=== PATIENT | male | born 1945 | race Caucasian/White ===

== ENCOUNTER 2020-11-21 05:26 | Day surgery (SDC) | payer MEDICARE, OTHER, SELFPAY ==
[2020-10-18 12:41] VITALS: BMI 28.2
[2020-11-21] VITALS (10 sets, daily range): BP systolic 117–142; BP diastolic 67–78; PULSE 56–68; RESP 16; TEMP 35.8–36.6; O2SAT 94–100; BMI 26.5
--- NOTE | 2020-11-21 06:06 | HP.PCM_ITS ---
History and Physical Date of Admission: 11/21/20 [facility] <Noa Ott - Last Filed: 10/18/20 12:47> Medical History (Updated 10/18/20 @ 13:[address] Harish Groves MD) Arthritis Back problem Cancer of bone Hypertension Presbycusis of both ears Prostate cancer Umbilical hernia Surgical History (Updated 10/18/20 @ 12:37 by Noa Ott) S/P appendectomy S/P prostatectomy S/P tonsillectomy Family History (Updated 10/18/20 @ 12:39 by Noa Ott) Daughter Breast cancer Mother Heart disease Myocardial infarction Father Prostate cancer Social History (Updated 10/18/20 @ 12:40 by Noa Ott) Smoking Status: Former smoker Smokeless tobacco user: chewing tobacco alcohol intake: current alcohol intake frequency: holidays/special occasions only caffeine: Yes what type of physical activity do you participate in: walking and aerobics frequency: 3-4 times per week HPI <Noa Ott - Last Filed: 10/18/20 12:47> HPI HPI: JAMILA ALVARADO, is a 75 M who presents to the office today for <Dr. Harish Groves MD - Last Filed: 10/18/20 13:47> HPI HPI: 75-year-old gentleman. He is referred to me today by Dr. Candido Littlejohn and a written copy of my surgical consult and recommendations will be returned to him. The patient has a ventral incisional hernia located at the superior aspect of the umbilicus. This is related to her previous radical prostatectomy incision. 8 years ago the patient was diagnosed as having prostate cancer. He underwent a radical prostatectomy. 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 He has been treated successfully without advancement of disease. He has remained incredibly stable. His PSA apparently is essentially nothing. His testosterone level is also low to nothing. He enjoys a very good quality of life. On a secondary note it has been recommended to him that he consider a colonoscopy. He states that 2 other consultants regarding this procedure and have advised that he not proceed. He has never had a colonoscopy or colon screening procedure. Fortunately he currently denies any bright red blood per rectum or melena. He denies any family history of colon cancer HPI <Noa Ott - Last Filed: 10/18/20 12:47> HPI HPI: JAMILA ALVARADO, is a 75 M who presents to the office today for ROS <Noa Ott - Last Filed: 10/18/20 12:47> General General: No weight change, appetite, fatigue, colon cancer or breast cancer HEENT HEENT: No difficulty swallowing, eye injury, eye surgery, swollen glands or hoarseness Endo Endocrine: No thyroid disease, diabetes mellitus, thyroid cancer, Hair loss, heat intolerance or cold intolerance Skin Skin: No rash or changing moles Musc Musculoskeletal: Yes back problems and arthritis; No rheumatoid arthritis, gout or joint pain Cardio Cardiovascular: Yes high blood pressure; No murmur, pacemaker, heart disease, atrial fibrillation, heart attack, heart stent, palpitations, shortness of breat with exertion or chest pain Psych Psychiatric: No depression, anxiety or hearing voices Resp Respiratory: No shortness of breath, No sleep apnea, No cough, No COPD, No asthma, No emphysema and No wheezing Gastro Gastrointestinal: No abdominal pain, No nausea or vomiting, No diarrhea, No constipation, No blood in stool, No acid reflux, No hemorrhoids, No ulcers, No gallbladder problem and No black,tarry stools Michael Hematologic: No blood thinners, No blood disorders, No bleeding, No anemia and No blood clots Exam <Noa Ott - Last Filed: 10/18/20 12:47> Cardio Heart Sounds: no murmurs <Dr. Harish Groves MD - Last Filed: 10/18/20 13:47> Const General: cooperative, healthy appearing and comfortable Eyes General: appearance normal, both eyes and all related structures Resp Effort & Inspection: normal respiratory effort Cardio Rate: regular rate Rhythm: regular rhythm GI Inspection: normal to inspection Other: Small incision in the inferior portion of the umbilicus. Incarcerated fibrofatty tissue at the superior aspect. No erythema. No hepatosplenomegaly, normal bowel sounds, nontender Musc Cervical Spine: normal cervical lordosis Extrem General: no calf tenderness bilaterally Psych Thought Content: normal <Dr. Harish Groves MD - Last Filed: 10/18/20 13:47> Procedure Criteria Procedure Criteria: Yes Elective The surgeon/proceduralist and patient have discussed in detail the risk of exposure to and/or potential harm posed by the COVID-19 virus with having a surgery/procedure at this time versus the risk of delaying the surgery/procedure. It is not possible to know either the risk of delaying the surgery or procedure or chance of getting an infection with perfect accuracy, but a joint decision was made between the patient and the surgeon/proceduralist to proceed at this time with the scheduled surgery/procedure as indicated on the consent form. <Dr. Harish Groves MD - Last Filed: 10/18/20 13:47> Assessment and Plan (1) Incarcerated ventral hernia: (2) Screening for intestinal cancer: Plan Details Additional Comments: The patient has evidence of an incarcerated ventral incisional hernia at the superior aspect of the umbilicus. On clinical exam this is consistent with fibrofatty tissue but it feels rather fixed and rubbery and firm. The patient otherwise and is enjoying a good quality of life. I do recommend and offer him a repair. This would likely be performed through a small keyhole incision based upon the more superior aspect of the umbilicus within likely placement of an Ventralex mesh. He is aware of the technique, benefit, risk, alternatives. The patient has never had a screening colonoscopy. Although he has metastatic prostate cancer to the bone he has had that for 8 years and is continuing to enjoy a very high quality of life. I also discussed with him a screening colonoscopy with possible biopsy or polypectomy as indicated. He is aware of the technique benefit risk complications alternatives. He has had an opportunity to ask and have questions answered. He is interested in proceeding with this. We will schedule and assist. I very much appreciate the kind opportunity of assisting with his surgical care Copy: Dr. Candido Groves M.D., F.A.C.S. The patient presents for screening colonoscopy today. History and physical is been reviewed. No acute changes. We will proceed as noted. Harish Groves M.D., F.A.C.S.
[2020-11-21] MEDS: Lactated Ringers 1,000 ML 100 ML IV (06:13)
[2020-11-21] MEDS: 0.9% Saline Lock 10 ML Syringe IV (06:30)
[2020-11-21] MEDS: Midazolam 5 MG/ML Syringe (06:30)
--- NOTE | 2020-11-21 06:30 | COLBX_PTH ---
PATIENT: JAMILA ALVARADO LOC: [facility] U#:[id number] AGE/SX: 75/M ROOM: RE11/21/[address]: Dr. Harish Groves MD : 1945 BED: DIS: 11/21/2020 SPEC #: [id number] RECD: 11/21/20 09:02 STATUS: ADRIANA TORRESChavo #: [id number] AUSTYN: 11/21/20 06:[address]: Harish Groves DEPT: SURGICAL PATHOLOGY RECD BY: Von Lopez ENTERED: 11/21/20 09:57 SP TYPE: COLON BX OTHR DR: Dr. Candido Littlejohn MD Tissues: A - Ascending colon B - Descending colon Procedures: Surgery Specimen Level IV HEADER OPERATION: Colonoscopy (MOD) PRE-OP DIAGNOSIS: Screening for intestinal cancer TISSUE SUBMITTED: A ? Distal ascending colon polyp biopsy, B ? Descending colon polyp biopsy MICROSCOPIC DIAGNOSIS A. Distal ascending colon polyp, biopsy: Fragments of tubular adenoma. B. Descending colon polyp, biopsy: Tubular adenoma. SUJATA:meño 11/22/2020 MICROSCOPIC DESCRIPTION Slides are reviewed. GROSS DESCRIPTION A - Received in fixative is one container labeled with the patient's name and designated distal ascending colon polyp biopsy. The specimen consists of multiple variable sized pieces of wang-pink polyp that in aggregate measure 1.2 x 0.5 x 0.3 cm. The specimen is totally submitted in one cassette. B - Received in fixative is one container labeled with the patient's name and designated descending colon polyp biopsy. The specimen consists of a pink-red polyp measuring 1.2 x 0.7 x 0.8 cm. The apparent base is inked. The specimen is serially sectioned and submitted entirely in one cassette. / SUJATA:meño 11/21/20 TC:1 [facility]: [id number] x2
--- NOTE | 2020-11-24 15:09 | OP.CCLET_ITS ---
11/21/2020 Candido Littlejohn Re : Colonoscopy procedure for Phillip Hi Dear Annetta This procedure was performed on Saturday, November 21, 2020. My impressions and recommendations are as follows: Impressions : - Hemorrhoids found on perianal exam. - One 10 mm polyp in the distal ascending colon, removed with a hot snare. Resected and retrieved. - One 12 mm polyp in the distal descending colon, removed with a hot snare and removed using injection-lift and a hot snare. Resected and retrieved. Clip was placed. - Diverticulosis in the sigmoid colon. Recommendations : - Discharge patient to home. - Resume previous diet. - Continue present medications. - Repeat colonoscopy in 5 years for surveillance based on pathology results. - Telephone my office for pathology results in 1 week. My findings are described in the full procedure note, which is enclosed. If I can be of further assistance, please feel free to contact me at Doctor phone number(s): Work: . Sincerely, Harish Groves MD 11/21/2020 6:58:53 AM This report has been signed electronically.
--- NOTE | 2020-11-24 15:09 | OP.COLON_ITS ---
Patient Name: Phillip Hi Procedure Date: 11/21/2020 6:13 AM Date of : 1945 Age: 75 Procedure: Colonoscopy Indications: Screening for colorectal malignant neoplasm Providers: Harish Groves MD Medicines: Midazolam 3 mg IV, Meperidine 100 mg IV Patient Profile: Last Colonoscopy: none. The patient's first colonoscopy is today. Complications: No immediate complications. Procedure: Pre-Anesthesia Assessment: - Prior to the procedure, a History and Physical was performed, and patient medications and allergies were reviewed. The patient's tolerance of previous anesthesia was also reviewed. The risks and benefits of the procedure and the sedation options and risks were discussed with the patient. All questions were answered, and informed consent was obtained. Prior Anticoagulants: The patient has taken no previous anticoagulant or antiplatelet agents. ASA Grade Assessment: II - A patient with mild systemic disease. After reviewing the risks and benefits, the patient was deemed in satisfactory condition to undergo the procedure. After I obtained informed consent, the scope was passed under direct vision. Throughout the procedure, the patient's blood pressure, pulse, and oxygen saturations were monitored continuously. The Colonoscope was introduced through the anus and advanced to the cecum, identified by appendiceal orifice and ileocecal valve. The colonoscopy was performed without difficulty. The patient tolerated the procedure well. The quality of the bowel preparation was good. The ileocecal valve and the appendiceal orifice were photographed. Moderate Sedation: Moderate (conscious) sedation was personally administered by the endoscopist. The following parameters were monitored: oxygen saturation, heart rate, blood pressure, and response to care. Total physician intraservice time was 15 minutes. Scope In: 6:30:35 AM Scope Withdrawal Time 0 hours 17 minutes 36 seconds Scope Out: 6:50:55 AM Total Procedure Duration Time 0 hours 20 minutes 20 seconds Findings: Hemorrhoids were found on perianal exam. A 10 mm polyp was found in the distal ascending colon. The polyp was pedunculated. The polyp was removed with a hot snare. Resection and retrieval were complete. A 12 mm polyp was found in the distal descending colon. The polyp was semi-sessile. The polyp was removed with a hot snare. The polyp was removed with a saline injection-lift technique using a hot snare. Resection and retrieval were complete. To prevent bleeding post-intervention, one hemostatic clip was successfully placed. There was no bleeding at the end of the procedure. Multiple diverticula were found in the sigmoid colon. Impression: - Hemorrhoids found on perianal exam. - One 10 mm polyp in the distal ascending colon, removed with a hot snare. Resected and retrieved. - One 12 mm polyp in the distal descending colon, removed with a hot snare and removed using injection-lift and a hot snare. Resected and retrieved. Clip was placed. - Diverticulosis in the sigmoid colon. Recommendation: - Discharge patient to home. - Resume previous diet. - Continue present medications. - Repeat colonoscopy in 5 years for surveillance based on pathology results. - Telephone my office for pathology results in 1 week. Procedure Code(s): --- Professional --- 03889, Colonoscopy, flexible; with removal of tumor(s), polyp(s), or other lesion(s) by snare technique 68183, Colonoscopy, flexible; with directed submucosal injection(s), any substance 34586, 59, Moderate sedation services provided by the same physician or other qualified health home care attendant performing the diagnostic or therapeutic service that the sedation supports, requiring the presence of an independent trained observer to assist in the monitoring of the patient's level of consciousness and physiological status; initial 15 minutes of intraservice time, patient age 5 years or older Diagnosis Code(s): --- Professional --- Z12.11, Encounter for screening for malignant neoplasm of colon K64.9, Unspecified hemorrhoids D12.2, Benign neoplasm of ascending colon D12.4, Benign neoplasm of descending colon K57.30, Diverticulosis of large intestine without perforation or abscess without bleeding CPT copyright 2017 [employer]. All rights reserved. The codes documented in this report are preliminary and upon convertible power shovel operator review may be revised to meet current compliance requirements. Harish Groves MD 11/21/2020 6:58:53 AM This report has been signed electronically. Number of Addenda: 0 Note Initiated On: 11/21/2020 6:13 AM
== END 2020-11-21 08:00 ==
LOC: EN 05:36 → AC 05:38
PROVIDERS: PCP Family Medicine; Referring Provider Family Medicine; Visit Provider Surgery
PROC: 0DJD8ZZ Inspection of Lower Intestinal Tract, Via Natural or Artificial Opening Endoscopic (ICD-10-PCS; CPT 45378; principal; 2020-11-21 06:25)
DX: Z12.11 Encounter for screening for malignant neoplasm of colon (principal); D12.2 Benign neoplasm of ascending colon; D12.4 Benign neoplasm of descending colon; M19.90 Unspecified osteoarthritis, unspecified site; I10 Essential (primary) hypertension; H91.13 Presbycusis, bilateral; Z85.830 Personal history of malignant neoplasm of bone; Z85.46 Personal history of malignant neoplasm of prostate; Z87.891 Personal history of nicotine dependence; K43.6 Other and unspecified ventral hernia with obstruction, without gangrene; K57.30 Diverticulosis of large intestine without perforation or abscess without bleeding; K64.9 Unspecified hemorrhoids
CPT/HCPCS: 45381; 45385; 88305; 99152; 99153; J7120; A4216

== ENCOUNTER 2020-12-05 08:53 | Day surgery (SDC) | payer MEDICARE, OTHER, SELFPAY ==
[2020-10-18 12:41] VITALS: BMI 28.2
[2020-11-21 06:02] VITALS: BMI 26.5
--- NOTE | 2020-11-30 09:11 | EKG12_ITS ---
Test Reason : PREOP Blood Pressure : / mmHG Vent. Rate : 068 BPM Atrial Rate : 068 BPM P-R Int : 178 ms QRS Dur : 126 ms QT Int : 444 ms P-R-T Axes : 068 -55 022 degrees QTc Int : 472 ms Normal sinus rhythm with sinus arrhythmia Left axis deviation Right bundle branch block Abnormal ECG Confirmed by AVA DOVER, STEPH ([id number]), editor in chief VANIA ANGEL ([id number]) on 12/01/2020 8:09:34 AM Referred By: Harish Groves Confirmed By:STEPH ESCALANTE MD
[2020-11-30 09:37] LABS: Hematocrit 44.2 % (40-54); Hemoglobin 14.9 g/dL (13.0-16.5); Mean Corp Hgb Conc 33.7 g/dL (32-36); Mean Corpuscular Hgb 28.9 pg (27.0-32.0); Mean Corpuscular Volume 85.8 fL (80-94); Mean Platelet Vol. 10.3 fl (6.2-12.0); Platelet Count 144 K/mm3 (150-450); RBC Distribution Width SD 37.8 fl (35.1-43.9); Red Blood Count 5.15 M/mm3 (4.6-6.2); White Blood Count 4.9 K/mm3 (4.4-11.0)
[2020-11-30 10:03] LABS: Anion Gap 5 (5-15); BUN 18 mg/dL (7-18); BUN/Creat Ratio 22.3 RATIO (10-20); Chloride 106 mmol/L (98-107); Creatinine, Serum 0.81 mg/dL (0.70-1.30); EST Glomerular Filtration Rate 99 mL/min (>60); Est Glom Filt Rate - Afr Amer 119 mL/min (>60); Glucose 95 mg/dL (74-106); Potassium 4.5 mmol/L (3.5-5.1); Sodium Level 141 mmol/L (136-145)
[2020-12-05] VITALS (7 sets, daily range): BP systolic 136–157; BP diastolic 71–79; PULSE 61–80; RESP 16–18; TEMP 36.2–37; O2SAT 92–98; BMI 26.2
[2020-12-05] MEDS: Lactated Ringers 1,000 ML 100 ML IV (09:39)
--- NOTE | 2020-12-05 10:40 | PCM.HP.BLA ---
History and Physical Date of Admission: 12/05/20 Arthritis Back problem Cancer of bone Hypertension Presbycusis of both ears Prostate cancer Umbilical hernia Surgical History (Updated 10/18/20 @ 12:37 by Noa Ott) S/P appendectomy S/P prostatectomy S/P tonsillectomy Family History (Updated 10/18/20 @ 12:39 by Noa Ott) Daughter Breast cancer Mother Heart disease Myocardial infarction Father Prostate cancer Social History (Updated 10/18/20 @ 12:40 by Noa Ott) Smoking Status: Former smoker Smokeless tobacco user: chewing tobacco alcohol intake: current alcohol intake frequency: holidays/special occasions only caffeine: Yes what type of physical activity do you participate in: walking and aerobics frequency: 3-4 times per week HPI <Noa Ott - Last Filed: 10/18/20 12:47> HPI HPI: JAMILA ALVARADO, is a 75 M who presents to the office today for <Dr. Harish Groves MD - Last Filed: 10/18/20 13:47> HPI HPI: 75-year-old gentleman. He is referred to me today by Dr. Candido Littlejohn and a written copy of my surgical consult and recommendations will be returned to him. The patient has a ventral incisional hernia located at the superior aspect of the umbilicus. This is related to her previous radical prostatectomy incision. 8 years ago the patient was diagnosed as having prostate cancer. He underwent a radical prostatectomy. 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 He has been treated successfully without advancement of disease. He has remained incredibly stable. His PSA apparently is essentially nothing. His testosterone level is also low to nothing. He enjoys a very good quality of life. On a secondary note it has been recommended to him that he consider a colonoscopy. He states that 2 other consultants regarding this procedure and have advised that he not proceed. He has never had a colonoscopy or colon screening procedure. Fortunately he currently denies any bright red blood per rectum or melena. He denies any family history of colon cancer HPI <Noa Ott - Last Filed: 10/18/20 12:47> HPI HPI: JAMILA ALVARADO, is a 75 M who presents to the office today for ROS <Noa Ott - Last Filed: 10/18/20 12:47> General General: No weight change, appetite, fatigue, colon cancer or breast cancer HEENT HEENT: No difficulty swallowing, eye injury, eye surgery, swollen glands or hoarseness Endo Endocrine: No thyroid disease, diabetes mellitus, thyroid cancer, Hair loss, heat intolerance or cold intolerance Skin Skin: No rash or changing moles Musc Musculoskeletal: Yes back problems and arthritis; No rheumatoid arthritis, gout or joint pain Cardio Cardiovascular: Yes high blood pressure; No murmur, pacemaker, heart disease, atrial fibrillation, heart attack, heart stent, palpitations, shortness of breat with exertion or chest pain Psych Psychiatric: No depression, anxiety or hearing voices Resp Respiratory: No shortness of breath, No sleep apnea, No cough, No COPD, No asthma, No emphysema and No wheezing Gastro Gastrointestinal: No abdominal pain, No nausea or vomiting, No diarrhea, No constipation, No blood in stool, No acid reflux, No hemorrhoids, No ulcers, No gallbladder problem and No black,tarry stools Michael Hematologic: No blood thinners, No blood disorders, No bleeding, No anemia and No blood clots Exam <Noa Ott - Last Filed: 10/18/20 12:47> Cardio Heart Sounds: no murmurs <Dr. Harish Groves MD - Last Filed: 10/18/20 13:47> Const General: cooperative, healthy appearing and comfortable Eyes General: appearance normal, both eyes and all related structures Resp Effort & Inspection: normal respiratory effort Cardio Rate: regular rate Rhythm: regular rhythm GI Inspection: normal to inspection Other: Small incision in the inferior portion of the umbilicus. Incarcerated fibrofatty tissue at the superior aspect. No erythema. No hepatosplenomegaly, normal bowel sounds, nontender Musc Cervical Spine: normal cervical lordosis Extrem General: no calf tenderness bilaterally Psych Thought Content: normal <Dr. Harish Groves MD - Last Filed: 10/18/20 13:47> Procedure Criteria Procedure Criteria: Yes Elective The surgeon/proceduralist and patient have discussed in detail the risk of exposure to and/or potential harm posed by the COVID-19 virus with having a surgery/procedure at this time versus the risk of delaying the surgery/procedure. It is not possible to know either the risk of delaying the surgery or procedure or chance of getting an infection with perfect accuracy, but a joint decision was made between the patient and the surgeon/proceduralist to proceed at this time with the scheduled surgery/procedure as indicated on the consent form. <Dr. Harish Groves MD - Last Filed: 10/18/20 13:47> Assessment and Plan (1) Incarcerated ventral hernia: (2) Screening for intestinal cancer: Plan Details Additional Comments: The patient has evidence of an incarcerated ventral incisional hernia at the superior aspect of the umbilicus. On clinical exam this is consistent with fibrofatty tissue but it feels rather fixed and rubbery and firm. The patient otherwise and is enjoying a good quality of life. I do recommend and offer him a repair. This would likely be performed through a small keyhole incision based upon the more superior aspect of the umbilicus within likely placement of an Ventralex mesh. He is aware of the technique, benefit, risk, alternatives. The patient has never had a screening colonoscopy. Although he has metastatic prostate cancer to the bone he has had that for 8 years and is continuing to enjoy a very high quality of life. I also discussed with him a screening colonoscopy with possible biopsy or polypectomy as indicated. He is aware of the technique benefit risk complications alternatives. He has had an opportunity to ask and have questions answered. He is interested in proceeding with this. We will schedule and assist. I very much appreciate the kind opportunity of assisting with his surgical care Copy: Dr. Candido Groves M.D., F.A.C.S. The patient has colonoscopy on November 24, 2020. This demonstrated 2 polyps which were resected and both tubular adenomas. He will follow-up exam in 5 years. He presents today for repair of his incarcerated supraumbilical ventral incisional hernia. He is aware of the technique, benefit, risk, alternatives. He is aware we plan on using mesh. We will proceed as noted. Harish Groves M.D., F.A.C.S.
[2020-12-05] MEDS: Cefazolin 2 GM in 0.9% Normal Saline 100 ML IV (10:52)
--- NOTE | 2020-12-05 10:54 | EX.PCM.DISCH ---
Discharge Instructions Procedure General Surgery Diet Discharge Diet: Light diet - advance as tolerated (if you have questions about your diet instructions, please talk to you doctor.) Activity Discharge Activity: May Not Drive (for 3-5 days or while taking narcotic pain medicine.) May shower in (days): 1 Lifting Restrictions: 10 pounds Dressing / Incision Call your doctor if your incision/area has: Continuous Slow Oozing, Sudden Increased Bleeding, Increased Pain/ Swelling, Increased Redness and Foul Smelling Discharge Call your doctor if you observe: Fever of 101 or Higher Suture Line Care: Avoid Pulling/Pushing and Avoid Pinching/Bending Additional Dressing/Incision Instructions:: Change or remove dressing in 4 days. Leave steri-strips in place for 1 week. Follow Up Care Please Follow Up With: Harish Groves MD When: Call [phone] to make an appointment to be seen in about 10 days. Test Results: Test results from this visit will be discussed in further detail at your follow-up appointment, if applicable. Discharge Plan Admission Attending Provider: Harish Groves Primary Care Provider: Candido Littlejohn Discharge Orders/Prescriptions Prescriptions: No Action amlodipine 5 mg tablet 5 mg PO DAILY RF: 0 escitalopram oxalate 10 mg tablet 10 mg PO DAILY RF: 0 bicalutamide 50 mg tablet 50 mg PO DAILY RF: 0 atorvastatin 10 mg tablet 10 mg PO DAILY RF: 0 Eligard (3 month) 22.5 mg syringe 22.5 mg subcut [id number] RF: 0 vitamin B complex Tablet 1 tab PO DAILY RF: 0 cholecalciferol (vitamin D3) 50 mcg (2,000 unit) capsule 50 mcg PO DAILY RF: 0
--- NOTE | 2020-12-05 11:00 | HERN_PTH ---
PATIENT: JAMILA ALVARADO LOC: [facility] U#:[id number] AGE/SX: 75/M ROOM: RE12/05/[address]: Dr. Harish Groves MD : 1945 BED: DIS: 12/05/2020 SPEC #: [id number] RECD: 12/05/20 12:23 STATUS: ADRIANA REChavo #: [id number] AUSTYN: 12/05/20 11:[address]: Harish Groves DEPT: SURGICAL PATHOLOGY RECD BY: Maria Esther Mcgarry ENTERED: 12/05/20 12:38 SP TYPE: Hernia OTHR DR: Dr. Candido Littlejohn MD Tissues: HERNIA Procedures: Surgery Specimen Level II HEADER OPERATION: Open incarcerated ventral hernia repair with mesh PRE-OP DIAGNOSIS: Incarcerated ventral hernia TISSUE SUBMITTED: Hernia sac and content MICROSCOPIC DIAGNOSIS Ventral hernia sac, herniorrhaphy: Hernia sac with mild fibrosis. AM:meño 12/06/2020 MICROSCOPIC DESCRIPTION Slides are reviewed. GROSS DESCRIPTION Received in fixative is one container labeled with the patient's name and designated hernia sac and contents. The specimen consists of an irregular fragment of lobulated yellow fatty tissue measuring 2.6 x 4 x 1.5 cm. Serial sections reveal homogenous yellow cut surfaces with no mass lesions. Painter Helper Spray sections are submitted in two cassettes. / AM:meño 12/05/20 TC:5 [facility]: [id number]
[2020-12-05] MEDS: Bupivacaine Mpf 0.5% 30 ML VIAL (11:12)
--- NOTE | 2020-12-05 11:37 | PCM.OPRPT ---
Problems Associated Problem List Diagnoses (1) Incarcerated ventral hernia: Report of Operation Date of Procedure: 12/05/20 Pre-Operative Diagnosis: Incarcerated supraumbilical ventral incisional hernia Post-Operative Diagnosis: Same Surgery/Procedure Performed:: Incarcerated ventral incisional herniorrhaphy with 6.4 cm Ventralex mesh Reference [id number] Lot number [id number] Expiry date 06/19/2022 Description of Surgical Findings:: Timeout and informed consent was obtained. 75-year-old gentleman was taken to the operating room. He was placed upon the table underwent general endotracheal intubation anesthesia. Ancef 2 g were given intravenously. The abdomen sterilely prepped and draped. A curvilinear incision was made the superior portion of the umbilicus. Sharp and blunt dissection was used to identified incarcerated omental tissue within the incisional hernia. This was sharply dissected free and then secured with a 3-0 Vicryl ligature. The incarcerated contents and hernia sac were amputated and delivered a specimen. The preperitoneal space was then carefully cleaned. The defect area measured no more than 2 cm in diameter. A 6.4 cm Ventralex mesh was wetted and then placed internally and opened. The tails were secured with 0 Nurolon. The fascia was approximated transversely with 0 Nurolon. The mesh itself was carefully captured to allow for correct placement. There appeared to be a good positional fit in line. The fascia was anesthetized with 0.5% Marcaine as was subcutaneous tissues. A total of 30 cc was used. Steri-Strips cottonball Telfa OpSite dressings applied. Sponge and instrument and needle counts were reported the surgeon be correct. Blood loss minimal. Specimen hernia sac and contents. Drains none. Blood loss minimal. The patient was taken to the recovery area in satisfactory condition without apparent complication Harish Groves M.D., F.A.C.S. Type of Anesthesia: General and Local Anesthesiologist: Jake Haddad
[2020-12-05] MEDS: HYDROcodone Bitartrate/Apap 5/325 Tablet PO (13:41)
== END 2020-12-05 14:19 ==
LOC: SDC 08:54 → AC 08:55
PROVIDERS: PCP Family Medicine; Referring Provider Surgery; Visit Provider Surgery
PROC: (CPT 49561; principal; 2020-12-05 10:45)
DX: K43.0 Incisional hernia with obstruction, without gangrene (principal); I10 Essential (primary) hypertension; M19.90 Unspecified osteoarthritis, unspecified site; F41.9 Anxiety disorder, unspecified; Z79.899 Other long term (current) drug therapy; Z85.46 Personal history of malignant neoplasm of prostate; Z87.891 Personal history of nicotine dependence
CPT/HCPCS: 00832; 49561; 49568; 36415; 80048; 85027; 88302; 93005; C1781; J7120; J2405

== ENCOUNTER 2021-08-29 09:31 | Outpatient (CLI) | payer MEDICARE, OTHER, SELFPAY ==
--- NOTE | 2021-08-29 09:42 | BD_ITS ---
STUDY: DUAL ENERGY X-RAY ABSORPTIOMETRY / DXA REASON FOR EXAM: Male, 76 years old. Z79.818. TECHNIQUE: Bone Mineral Density (BMD) measurements of lumbar spine and bilateral hips were obtained. COMPARISON: None. FINDINGS: Lumbar Spine (L1-L4): g/cm2 (0.971) / T-score (-0.7) / Z-score (0.3) Findings are suggestive of normal bone density with a low fracture risk. Left Femur Total: g/cm2 (0.977) / T-score (-0.4) / Z-score (0.6) Left Femoral Neck: g/cm2 (0.681) / T-score (-1.8) / Z-score (-0.4) Right Femur Total: g/cm2 (0.861) / T-score (-1.1) / Z-score (-0.2) Right Femoral Neck: g/cm2 (0.670) / T-score (-1.9) / Z-score (-0.5) BD/Dexa Bone Density Study IMPRESSION: The patient is considered osteopenic as outlined below according to World [place] Organization (WHO) criteria with a moderate fracture risk. Reference Information: The T-score is the number of standard deviations above or below the standard which is normal for young adults at their peak bone mineral density. The World Health Organization (WHO) interprets the T-scores as follows: Above -1 Normal bone density Between -1 and -2.5 Osteopenia Equal to / or below -2.5 Osteoporosis As a practical clinical guideline, osteopenia may be graded as follows: Mild -1 through -1.5 Moderate -1.6 through -2.0 Severe -2.1 through -2.4 The Z-score is the number of standard deviations above or below age-matched controls. A Z-score of less than -1.5 would be considered abnormal. References: 1. NIH Osteoporosis and Related Bone Diseases www osteo.org 2. International Society for Clinical Densitometry www iscd.org 3. National Osteoporosis Foundation www nof.org Electronically Signed: Walt Child MD at 12:48 EST ,
== END 2021-08-29 23:59 | disposition home or self-care (01) ==
LOC: OPBD 09:32
PROVIDERS: PCP Family Medicine; Visit Provider Internal Medicine Medical Oncology
DX: C61 Malignant neoplasm of prostate (principal); Z79.818 Long term (current) use of other agents affecting estrogen receptors and estrogen levels
CPT/HCPCS: 77080

== ENCOUNTER → 2023-09-23 | Outpatient (CLI) | payer MEDICARE, OTHER, SELFPAY ==
--- NOTE | 2023-09-23 08:29 | BD_ITS ---
STUDY: DUAL ENERGY X-RAY ABSORPTIOMETRY / DXA REASON FOR EXAM: Male, 78 years old. Z79.52 TECHNIQUE: Bone Mineral Density (BMD) measurements of lumbar spine and bilateral hips were obtained. COMPARISON: Comparison is made with prior study August 29, 2021. FINDINGS: Lumbar Spine (L1-L4): g/cm2 (0.965) / T-score (-0.8) / Z-score (0.3) Findings are suggestive of normal bone density with a low fracture risk. Left Femur Total: g/cm2 (0.990) / T-score (-0.3) / Z-score (0.8) Left Femoral Neck: g/cm2 (0.750) / T-score (-1.3) / Z-score (0.2) Right Femur Total: g/cm2 (0.877) / T-score (-1.0) / Z-score (0.0) Right Femoral Neck: g/cm2 (0.683) / T-score (-1.8) / Z-score (-0.3) The T-Scores on the most recent prior examination were: Lumbar Spine (L1-L4): There has been worsening of bone density since the previous examination. Left Femur Total: which represents an improvement of 1.3%. Right Femur Total: which represents an improvement of 1.8%. BD/Dexa Bone Density Study IMPRESSION: The patient is considered osteopenic as outlined below according to World [place] Organization (WHO) criteria with a moderate fracture risk. There has been improvement of bone density since the previous examination. Reference Information: The T-score is the number of standard deviations above or below the standard which is normal for young adults at their peak bone mineral density. The World Health Organization (WHO) interprets the T-scores as follows: Above -1 Normal bone density Between -1 and -2.5 Osteopenia Equal to / or below -2.5 Osteoporosis As a practical clinical guideline, osteopenia may be graded as follows: Mild -1 through -1.5 Moderate -1.6 through -2.0 Severe -2.1 through -2.4 The Z-score is the number of standard deviations above or below age-matched controls. A Z-score of less than -1.5 would be considered abnormal. References: 1. NIH Osteoporosis and Related Bone Diseases www osteo.org 2. International Society for Clinical Densitometry www iscd.org 3. National Osteoporosis Foundation www nof.org Electronically Signed: Walt Child MD at 8:47 EDT ,
== END | disposition home or self-care (01) ==
LOC: OPBD 08:23
PROVIDERS: PCP Nurse Practitioner Family
DX: C61 Malignant neoplasm of prostate (principal); C79.51 Secondary malignant neoplasm of bone; Z79.899 Other long term (current) drug therapy; Z79.52 Long term (current) use of systemic steroids
CPT/HCPCS: 77080

== ENCOUNTER → 2023-09-29 | Outpatient (CLI) | payer MEDICARE, OTHER, SELFPAY ==
--- NOTE | 2023-09-29 08:04 | CT_ITS ---
STUDY: CT ABDOMEN AND PELVIS WITH CONTRAST REASON FOR EXAM: Male, 78 years old. History of prostate carcinoma. Status post prostatectomy. RADIATION DOSAGE (If Supplied By Facility): CTDIvol = ( 17.03 ) mGy, DLP = ( 1058.01 ) mGycm TECHNIQUE: Transaxial images were obtained from the dome of the diaphragm to the symphysis pubis with oral contrast. Oral and amp; IV Readi-CAT and amp; 100mL Isovue-300 was administered. Sagittal and coronal images were reconstructed. Individualized dose optimization techniques were used for this CT. COMPARISON: None. FINDINGS: Minimal increased linear markings at the right lung base suggestive of linear atelectasis and/or scarring. : Artery calcification. There is decreased attenuation of the liver consistent with steatosis. Findings suggestive of small gallstones along the dependent portion of the gallbladder lumen. Normal spleen. Normal pancreas. Normal bilateral adrenal glands. Normal right kidney. Normal left kidney. Normal visualized stomach. Normal small intestine. Normal colon. The appendix is visualized and appears normal. There is scattered atherosclerotic calcification of the abdominal aorta, without a demonstrated aneurysm. Normal inferior vena cava. Normal retroperitoneum. Normal urinary bladder. The patient is status post prostatectomy. There is a left-sided inguinal hernia containing adipose tissue. There are diffuse degenerative changes of the visualized lumbar spine. Degenerative changes of the sacroiliac joints. There is a 2.1 cm x 0.3 cm sclerotic focus in the posterior mid left sacrum. Focal metastasis should be ruled out. CT/Abdomen/Pelvis WITH Contrast IMPRESSION: Fatty infiltration of the liver. Findings suggestive of small layering gallstones. Fatty infiltration of the liver. 2.1 cm x 0.3 cm sclerotic focus in the posterior mid left iliac bone. Electronically Signed: Walt Child MD at 10:58 EDT ,
--- NOTE | 2023-09-29 08:25 | RAD_ITS ---
STUDY: X-RAY CHEST REASON FOR EXAM: Male, 78 years old. PROSTATE CA TECHNIQUE: Frontal and lateral views of the chest. COMPARISON: None. FINDINGS: The lungs are clear and expanded. There is no demonstrated pleural abnormality. Normal size heart. Normal mediastinum and snow. Normal visualized pulmonary arteries. Normal visualized aortic arch and descending thoracic aorta. Normal visualized thoracic spine. Normal visualized ribs, clavicles, and shoulders. There is no demonstrated abnormality of the visualized soft tissue structures of the upper abdomen. RAD/Chest PA and Lateral IMPRESSION: No definite acute or significant abnormality seen. Electronically Signed: Peter Khan MD at 22:58 EDT ,
[2023-09-29 08:31] LABS: CREATININE FINGERSTICK < 1.0 mg/dL (0.70-1.30); EGFR FINGERSTICK > 60.0000 mL/min (>60)
== END | disposition home or self-care (01) ==
LOC: CT 08:02
PROVIDERS: PCP Nurse Practitioner Family
DX: Z01.812 Encounter for preprocedural laboratory examination (principal); C79.51 Secondary malignant neoplasm of bone; C61 Malignant neoplasm of prostate; Z79.899 Other long term (current) drug therapy; I10 Essential (primary) hypertension
CPT/HCPCS: 71046; 74177; Q9967

== ENCOUNTER → 2023-10-02 | Outpatient (CLI) | payer MEDICARE, OTHER, SELFPAY ==
--- NOTE | 2023-10-02 08:18 | NM_ITS ---
CLINICAL: 78-year-old male with history of primary prostate carcinoma. WHOLE BODY 99m Tc MDP RADIONUCLIDE BONE SCINTIGRAPHY COMPARISON: None available FINDINGS: Following the intravenous administration of 26.8 mCi of 99m Tc MDP, whole body bone images reveal: 1. Enhanced radiotracer distribution is defined in the acromioclavicular compartments of both shoulders, the sternoclavicular compartment of the left shoulder, the right elbow, the left wrist, the upper cervical spine posteriorly on the left and right. 2. The remaining skeletal structures are scintigraphically unremarkable with normal-appearing renal images and urinary bladder activity identified. There is increased uptake noted in the interorbital aspect of the skull and midline maxilla most consistent with periostitis, periodontal disease respectively. NM/Bone Scan Whole Body IMPRESSION: 1. The increase in radiotracer distribution defined in the bilateral shoulders, right elbow, the left wrist and cervical spine is commensurate with degenerative arthrosis. 2. There is no definitive scintigraphic evidence of skeletal metastatic disease on the current examination. Electronically Signed: Fuad Brown DO at 8:16 EDT ,
== END | disposition home or self-care (01) ==
LOC: NM 08:09
PROVIDERS: PCP Nurse Practitioner Family
DX: C61 Malignant neoplasm of prostate (principal); C79.51 Secondary malignant neoplasm of bone; Z79.899 Other long term (current) drug therapy
CPT/HCPCS: 78306; A9503